=== PATIENT | male | born 1945 | race Caucasian/White ===

== ENCOUNTER 2018-07-05 17:36 | Observation (INO) ==
[2018-07-05] MEDS ORDERED: Sod Chloride 0.9% Inj 1,000 ML IV.SIG ONE (17:47)
--- NOTE | 2018-07-05 18:08 | XR ---
EXAM DATE: 07/05/2018 5:47 PM EDT AGE/SEX: 73 years / Male INDICATIONS: Short of breath CLINICAL DATA: This is the patient's initial encounter. Patient reports that signs and symptoms have been present for 1 day and indicates a pain score of 0/10. MEDICAL/SURGICAL HISTORY: Hypertension. Carotid stent. COMPARISON: No prior exams available for comparison. FINDINGS: A single AP view of the chest demonstrates the lungs to be symmetrically aerated without evidence of mass, infiltrate or effusion. The cardiomediastinal contours are unremarkable. Osseous structures a re intact. CONCLUSION: No acute cardiopulmonary disease. Electronically signed by: Delroy Henning MD 07/05/2018 6:07 PM EDT
--- NOTE | 2018-07-05 18:12 | ED ---
HPI General Chief Complaint: Syncope Stated Complaint: Syncope Time Seen by Provider: 07/05/18 17:37 Source: patient Mode of arrival: ambulatory Limitations: no limitations History of Present Illness HPI narrative: Patient is a 73-year-old male presenting to [facility] via EMS for evaluation after having a syncopal episode. Episode was witnessed by and bystanders, patient was sitting on a cooler when he just collapsed. He did not hit his head, he was helped to the ground. states that he has not been feeling well all day. Patient denies any nausea, vomiting, chest pain, dizziness, abdominal pain, diarrhea. Patient denies any visual changes, he states that he gets like this historically when his blood sugars low, patient is not diabetic. Patient stated he was not feeling well and somebody gave him a brownie to eat, blood glucose when EMS arrived was 140. Syncopal episode lasted approximately 30 seconds. Patient has a history of coronary artery disease, hypertension, hyperlipidemia. He is currently on Plavix and is followed by Dr. Porter, cardiology. MD complaint: collapsed Onset (ago): minute(s) Duration of episode: 30 -: second(s) Prodromal symptoms: lightheaded Witnessed: yes - by other Context: at rest Injuries sustained associated with event: none Current symptoms: lightheaded and weakness History: history of CAD Treatments prior to arrival: none Related Data Home Medications Medication Instructions Recorded Confirmed amlodipine [Norvasc] 5 mg PO DAILY 07/05/18 07/05/18 ascorbic acid (vitamin C) [Vitamin 1,000 mg PO TID 07/05/18 07/05/18 C] aspirin [Aspirin Childrens] 81 mg PO BID 07/05/18 07/05/18 atorvastatin [Lipitor] 80 mg PO DAILY 07/05/18 07/05/18 benazepril 40 mg PO BID 07/05/18 07/05/18 clopidogrel [Plavix] 75 mg PO DAILY 07/05/18 07/05/18 ferrous sulfate 325 mg PO TID 07/05/18 07/05/18 gabapentin 600 mg PO TID 07/05/18 07/05/18 levothyroxine 50 mcg PO DAILY 07/05/18 07/05/18 meloxicam [Mobic] 15 mg PO DAILY 07/05/18 07/05/18 mirtazapine 15 mg PO HS 07/05/18 07/05/18 tizanidine 2 - 4 mg PO TID PRN 07/05/18 07/05/18 Allergies Allergy/AdvReac Type Severity Reaction Status Date / Time No Known Allergies Allergy Verified 07/05/18 18:21 Review of Systems ROS: all other systems reviewed are negative PMFSH History History Provided By: Patient, Family Member and Supervisor Lime / EMT Medical History Medical History CVA (cerebral vascular accident) (Acute) Coronary artery disease (Acute) FH: cholecystectomy (Acute) Hyperlipidemia (Acute) Hypertension (Acute) Hypothyroidism (Acute) Muscle pain (Acute) Surgical History Surgical History History of coronary artery stent placement (Acute) Hx of cardiac cath (Acute) Hx of tonsillectomy (Acute) Social History Social History Substance History: No History of Abuse Second Hand Smoke Exposure: No Smoking Status: Former smoker How Often Do You Have a Drink Containing Alcohol: 2 to 4 times a month Recent Travel in [facility] within the Last 8 Weeks: No Recent Out of Country Travel within the Last 8 Weeks: No Exam Narrative Exam Narrative: GENERAL: Well-developed, well-nourished, alert male. Presenting in no acute distress. SKIN: Focused skin assessment warm/dry. HEAD: Atraumatic. Normocephalic. EYES: Pupils equal and round. No scleral icterus. No injection or drainage. ENT: No nasal bleeding or discharge. Mucous membranes pink and moist. NECK: Trachea midline. No JVD. CARDIOVASCULAR: Bradycardic. No murmur appreciated. RESPIRATORY: No accessory muscle use. Clear to auscultation. Breath sounds equal bilaterally. GASTROINTESTINAL: Abdomen soft, non-tender, nondistended. Hepatic and splenic margins not palpable. MUSCULOSKELETAL: No obvious deformities. No clubbing. No cyanosis. No edema. NEUROLOGICAL: Awake and alert. No obvious cranial nerve deficits. Motor grossly within normal limits. Normal speech. PSYCHIATRIC: Appropriate mood and affect; insight and judgment normal. Course Initial Documented Vital Signs Temperature 98.2 F 07/05/18 17:45 Pulse Rate 92 H 07/05/18 17:45 Respiratory Rate 18 07/05/18 17:45 Blood Pressure 134/61 07/05/18 17:45 Pulse Oximetry 99 07/05/18 17:45 Last Documented Vital Signs Temperature 98.2 F 07/05/18 17:45 Pulse Rate 56 L 07/05/18 18:39 Respiratory Rate 28 H 07/05/18 18:39 Blood Pressure 136/66 07/05/18 18:39 Pulse Oximetry 96 07/05/18 18:39 Medical Decision Making ALBA Attestation ALBA supervised visit: Yes Attestation: I was present with the advanced practitioner during the management of this patient. I discussed the case with the advanced practitioner and agree with the findings and plan as documented in their note except if noted below. MDM Narrative Medical decision making narrative: Patient is a 73-year-old male presenting after having a witnessed syncopal episode. Patient is mildly bradycardic on arrival, his vital signs are otherwise stable. Labs and imaging ordered and pending. Labs reviewed, no acute findings. EKG shows sinus bradycardia with a first- degree block. Ventricular rate is 55. CT scan of the brain shows no acute findings, chest x-ray is unremarkable. Patient has been resting comfortably, no new events in the emergency department. Discussed findings with my attending physician. Patient will be admitted under observation for syncopal episode. He is high risk according to [place] syncope rule. Patient and were advised on clinical findings and plan of care. Patient is agreeable. Dr. Aguilar accepted admit. Orders placed. Medical Screen Exam Complete: Yes Emergency Medical Condition: Yes Differential Diagnosis Differential Diagnosis: Heat syncope versus vasovagal episode versus arrhythmia versus metabolic abnormality versus other Lab Data Result diagrams: 07/05/18 17:55 07/05/18 17:55 Lab Results 07/05/18 07/05/18 07/05/18 Range/Units 17:55 17:55 17:55 WBC 5.4 (4.0-11.0) th/mm3 RBC 3.88 L (4.50-5.90) mil/mm3 Hgb 12.9 L (13.0-17.0) gm/dL Hct 36.2 L (39.0-51.0) % MCV 93.2 (80.0-100.0) fL MCH 33.2 (27.0-34.0) pg MCHC 35.6 (32.0-36.0) % RDW 13.0 (11.6-17.2) % Plt Count 174 (150-450) th/mm3 MPV 7.1 (7.0-11.0) fL Neut % (Auto) 74.9 H (16.0-70.0) % Lymph % (Auto) 13.0 (9.0-44.0) % Ralls % (Auto) 6.2 (0.0-8.0) % Eos % (Auto) 5.6 H (0.0-4.0) % Baso % (Auto) 0.3 (0.0-2.0) % Neut # (Auto) 4.0 (1.8-7.7) th/mm3 Lymph # (Auto) 0.7 L (1.0-4.8) th/mm3 Ralls # (Auto) 0.3 (0.0-0.9) th/mm3 Eos # (Auto) 0.3 (0.0-0.4) th/mm3 Baso # (Auto) 0.0 (0.0-0.2) th/mm3 WBC Differential . Differential Comment Auto diff final PT 10.4 (9.8-11.6) sec INR 1.0 Ratio APTT 22.5 L (24.3-30.1) sec Sodium 142 (136-145) meq/L Potassium 3.9 (3.5-5.1) meq/L Chloride 107 (98-107) meq/L Carbon Dioxide 26.9 (21.0-32.0) meq/L Anion Gap 8 (5-15) meq/L BUN 20 H (7-18) mg/dL Creatinine 1.19 (0.60-1.30) mg/dL Estimated GFR 60 L (>89) mL/min Random Glucose 123 H (74-106) mg/dL Calcium 8.0 L (8.5-10.1) mg/dL Magnesium 2.1 (1.5-2.5) mg/dL Total Bilirubin 0.4 (0.2-1.0) mg/dL AST 15 (15-37) U/L ALT 21 (12-78) U/L Alkaline Phosphatase 104 (45-117) U/L Total Creatine Kinase 58 (39-308) U/L Troponin I Less than 0.02 L (0.02-0.05) ng/mL Total Protein 7.0 (6.4-8.2) g/dL Albumin 4.0 (3.4-5.0) g/dL Imaging Data Radiologist's impression: Chest X-Ray 07/05/18 17:47 CONCLUSION: No acute cardiopulmonary disease. Head CT 07/05/18 17:47 CONCLUSION: 1. No acute hemorrhage or mass effect. 2. Atrophy and chronic small vessel ischemic changes 3. Extensive mucosal thickening in the left maxillary sinus. . ECG Data Attestation: I personally reviewed and interpreted this ECG as follows: Interpretation: Rate: 55 BPM Rhythm: Sinus [place]: Normal Intervals: 1st degree AV block, QTc 400 ms Q waves: None T waves: Upright, no inversions ST segments: 1 mm elevation in V2 without changes in contiguous leads, no depressions Impression: Abnormal EKG, 1st degree AV block, no previous EKGs available for comparison. Discharge Plan Discharge Disposition Patient Disposition: 30 Still Patient Discharge Condition Condition: Stable Discharge Details Diagnosis: Syncope and collapse, Abnormal EKG Physicians Team ED Provider: Honey Lopez ED Midlevel Provider: Magali Arthur Primary Care Provider: NON STAFF,PROVIDER Attending Provider: Bere Aguilar Discharge Interventions Interventions: Vital Signs Last Done: 07/05/18 18:39 Status ED Status: Admitted Observation Patient
[2018-07-05 18:17] LABS: Baso % (Auto) 0.3 % (0.0-2.0); Eos # (Auto) 0.3 th/mm3 (0.0-0.4); Eos % (Auto) 5.6 % (0.0-4.0); Hematocrit 36.2 % (39.0-51.0); Hemoglobin 12.9 gm/dL (13.0-17.0); Lymph # (Auto) 0.7 th/mm3 (1.0-4.8); Mean Corpuscular HGB Conc 35.6 % (32.0-36.0); Mean Corpuscular Hemoglobin 33.2 pg (27.0-34.0); Mean Corpuscular Volume 93.2 fL (80.0-100.0); Mean Platelet Volume 7.1 fL (7.0-11.0); Mono # (Auto) 0.3 th/mm3 (0.0-0.9); Mono % (Auto) 6.2 % (0.0-8.0); Neut % (Auto) 74.9 % (16.0-70.0); Platelet Count 174 th/mm3 (150-450); Red Blood Count 3.88 mil/mm3 (4.50-5.90); White Blood Count 5.4 th/mm3 (4.0-11.0)
[2018-07-05 18:19] LABS: Activated Partial Thrombo Time 22.5 sec (24.3-30.1); Prothrombin Time 10.4 sec (9.8-11.6)
[2018-07-05 18:30] LABS: Alanine Aminotransferase 21 U/L (12-78); Anion Gap 8 meq/L (5-15); Aspartate Aminotransferase 15 U/L (15-37); Blood Urea Nitrogen 20 mg/dL (7-18); Carbon Dioxide 26.9 meq/L (21.0-32.0); Chloride 107 meq/L (98-107); Glomerular Filtration Rate 60 mL/min (>89); Glucose,Random 123 mg/dL (74-106); Magnesium 2.1 mg/dL (1.5-2.5); Potassium 3.9 meq/L (3.5-5.1); Sodium 142 meq/L (136-145)
[2018-07-05 18:32] LABS: Alkaline Phosphatase 104 U/L (45-117)
[2018-07-05 18:33] LABS: Creatine Kinase 58 U/L (39-308)
--- NOTE | 2018-07-05 19:27 | CT ---
EXAM DATE: 07/05/2018 5:53 PM EDT AGE/SEX: 73 years / Male INDICATIONS: Syncopal episode. CLINICAL DATA: This is the patient's initial encounter. Patient reports that signs and symptoms have been present for 1 day and indicates a pain score of 0/10. MEDICAL/SURGICAL HISTORY: None. None. RADIATION DOSE: 36.84 CTDI (mGy) COMPARISON: No prior exams available for comparison. TECHNIQUE: CT of the head without contrast. Using automated exposure control and adjustment of the mA and/or kV according to patient size, radiation dose was kept as low as reasonably achievable to ob tain optimal diagnostic quality images. DICOM format image data is available electronically for revi ew and comparison. FINDINGS: Cerebrum: The ventricles are normal for age. Patchy periventricular white matter lucencies are pres ent consistent with chronic small vessel ischemic change. No evidence of midline shift, mass lesion, hemorrhage or acute infarction. No extraaxial fluid collections are seen. Posterior Fossa: The cerebellum and brainstem are intact. The 4th ventricle is midline. The cerebe llopontine angle is unremarkable. Extracranial: The visualized portion of the orbits is intact. There is extensive mucosal thickening in the left maxillary sinus. Skull: The calvaria is intact. No evidence of skull fracture. CONCLUSION: 1. No acute hemorrhage or mass effect. 2. Atrophy and chronic small vessel ischemic changes 3. Extensive mucosal thickening in the left maxillary sinus. . Electronically signed by: Delroy Henning MD 07/05/2018 7:26 PM EDT
[2018-07-05] MEDS ORDERED: Acetaminophen 325 MG Tablet PO PRN (20:42)
[2018-07-05] MEDS ORDERED: Bisacodyl 10 MG Supp RECTAL PRN (20:42)
--- NOTE | 2018-07-05 21:54 | P.HPIM ---
History of Present Illness Primary Care Physician: PROVIDER NON STAFF History of Present Illness: This is a 73-year-old male with a PMH of HTN, Hyperlipidemia, CAD and h/o CVA who was brought to the ER by EMS after syncopal event. Pt states had been outdoors for almost 2hrs and sat down on a cooler when he had sudden onset of lightheadedness followed by syncope. Event witnessed by and bystanders who lowered pt to the ground, no head trauma reported. Notes previous episode of syncope in the past while hypoglycemic, BS 140 per EMS. Currently awake and alert w/ no complaints. On arrival, BP 134/61, HR 92, O2 sat 99% on RA, Afebrile. While in the ER however patient has had bradycardia with HR sustained in the 50s, denies previous history of bradycardia in the past. EKG with first-degree block. Does follow w/ Deposit Clerk, Dr. Porter, at , scheduled for Echo/Stress tomorrow morning. CBC unremarkable. INR 1.0. Chemistry essentially unremarkable except for GFR 60. BUN 20. Troponin negative. - Diagnosis (1) Syncope (2) Bradycardia (3) Abnormal EKG (4) Dehydration Review of Systems PAST FAMILY HISTORY: Reviewed. No h/o DM or CAD All other systems reviewed negative except as [facility] - History History Provided By: Patient, Family Member, Admitting Clerk / EMT - Medical History Medical History: Medical History (Last Updated 07/05/18 @ 18:38 by JuanitaNeedle HR) CVA (cerebral vascular accident) Coronary artery disease FH: cholecystectomy Hyperlipidemia Hypertension Hypothyroidism Muscle pain - Surgical History Surgical History: Surgical History (Last Updated 07/05/18 @ 18:38 by JuanitaNeedle HR) History of coronary artery stent placement Hx of cardiac cath Hx of tonsillectomy - Tobacco History Second Hand Smoke Exposure: No Tobacco Use In Past 30 Days: No Smoking Status: Former smoker - Alcohol History How Often Do You Have a Drink Containing Alcohol: 2 to 4 times a month - Substance Use History Substance History: No History of Abuse - Travel History Recent Travel in the [facility] Within the Last 8 Weeks: No Recent Travel Out of the Country Within the Last 8 Weeks: No - Immunization History Tetanus Immunization: >5 Years Hx Influenza Vaccine This Season: No Medications and Allergies Active Medications: Active Medications Acetaminophen (Tylenol) 650 mg PO Q4H PRN PRN Reason: Temp > 100.4 Al Hydroxide/Mg Hydroxide (Milk Of Magnesia Liq) 30 ml PO Q12H PRN PRN Reason: Mild Constipation Aspirin (Aspirin Chew) 81 mg PO BID [facility] Atorvastatin Calcium (Lipitor) 80 mg PO DAILY [facility] Bisacodyl (Dulcolax Supp) 10 mg RECTAL DAILY PRN PRN Reason: SEVERE CONSITIPATION Clopidogrel Bisulfate (Plavix) 75 mg PO DAILY [facility] Sodium Chloride (Ns Inj) 1,000 mls @ 100 mls/hr IV.CONT .Q10H ALLYN Lactulose (Lactulose Liq) 30 ml PO DAILY PRN PRN Reason: SEVERE CONSITIPATION Mirtazapine (Remeron) 15 mg PO HS [facility] Ondansetron HCl (Zofran Inj) 4 mg IV.PUSH Q6H PRN PRN Reason: NAUSEA OR VOMITING Senna/Docusate Sodium (Char-Colace) 1 tab PO BID [facility] Sennosides (Senokot) 17.2 mg PO Q12H PRN PRN Reason: Moderate Constipation Allergies Allergy/AdvReac Type Severity Reaction Status Date / Time No Known Allergies Allergy Verified 07/05/18 18:21 Home Medications Medication Instructions Recorded Confirmed Type amlodipine [Norvasc] 5 mg PO DAILY 07/05/18 07/05/18 History ascorbic acid (vitamin C) [Vitamin 1,000 mg PO TID 07/05/18 07/05/18 History C] aspirin [Aspirin Childrens] 81 mg PO BID 07/05/18 07/05/18 History atorvastatin [Lipitor] 80 mg PO DAILY 07/05/18 07/05/18 History benazepril 40 mg PO BID 07/05/18 07/05/18 History clopidogrel [Plavix] 75 mg PO DAILY 07/05/18 07/05/18 History ferrous sulfate 325 mg PO TID 07/05/18 07/05/18 History gabapentin 600 mg PO TID 07/05/18 07/05/18 History levothyroxine 50 mcg PO DAILY 07/05/18 07/05/18 History meloxicam [Mobic] 15 mg PO DAILY 07/05/18 07/05/18 History mirtazapine 15 mg PO HS 07/05/18 07/05/18 History tizanidine 2 - 4 mg PO TID PRN 07/05/18 07/05/18 History Exam Vital signs: Vital Signs 07/05/18 17:45 07/05/18 17:48 07/05/18 18:39 Temperature 98.2 F Pulse Rate 92 H 56 L Respiratory Rate 18 28 H Blood Pressure 134/61 136/66 Pulse Oximetry 99 99 96 Intake & Output 07/05/18 07/05/18 07/06/18 06:59 18:59 06:59 Intake Total 1000 / 1000 Balance 1000 / 1000 Weight 97.976 kg Intake: IV 1000 / 1000 NS Inj 1,000 ML @ Wide Open IV. 1000 / 1000 SIG BOLUS ONE Rx#:[id number] Narrative: PE: GENERAL: Extremely pleasant middle-aged white male in no acute distress. at bedside. SKIN: Focused skin assessment warm and dry. HEENT: PERRLA, EOMI. No scleral icterus or conjunctival pallor. No lid lag or facial droop. CARDIOVASCULAR: Bradycardia. No obvious murmurs to auscultation. No chest tenderness to palpation. RESPIRATORY: No obvious rhonchi or wheezing. Clear to auscultation. Breath sounds equal bilaterally. GASTROINTESTINAL: Abdomen soft, non-tender, nondistended. BS normal. MUSCULOSKELETAL: Extremities without clubbing, cyanosis, or edema. No obvious deformities. NEUROLOGICAL: Awake, alert and oriented x4. No focal neurologic deficits. Moving both upper and lower extremities spontaneously. PSYCHIATRIC: Appropriate mood and affect. Insight and judgment normal. Results - Labs CBC & Chem 7: 07/05/18 17:55 07/05/18 17:55 Labs: Short CBC 07/05/18 Range/Units 17:55 WBC 5.4 (4.0-11.0) th/mm3 Hgb 12.9 L (13.0-17.0) gm/dL Hct 36.2 L (39.0-51.0) % Plt Count 174 (150-450) th/mm3 BMP 07/05/18 17:55 Sodium 142 Potassium 3.9 Chloride 107 Carbon Dioxide 26.9 BUN 20 H Creatinine 1.19 Calcium 8.0 L Cardiac Enzymes 07/05/18 Range/Units 17:55 Total Creatine Kinase 58 (39-308) U/L Troponin I Less than 0.02 L (0.02-0.05) ng/mL Liver Function 07/05/18 Range/Units 17:55 Total Bilirubin 0.4 (0.2-1.0) mg/dL AST 15 (15-37) U/L ALT 21 (12-78) U/L Alkaline Phosphatase 104 (45-117) U/L Albumin 4.0 (3.4-5.0) g/dL - Imaging Impressions Chest X-Ray 07/05/18 17:47 CONCLUSION: No acute cardiopulmonary disease. Head CT 07/05/18 17:47 CONCLUSION: 1. No acute hemorrhage or mass effect. 2. Atrophy and chronic small vessel ischemic changes 3. Extensive mucosal thickening in the left maxillary sinus. . Caprini VTE Risk Assessment Caprini VTE Risk Assessment: No/Low Risk (score <= 1) Caprini Risk Assessment Model: Point Value = 1 Point Value = 2 Point Value = 3 Point Value = 5 Age 41-60 Minor surgery BMI > 25 kg/m2 Swollen legs Varicose veins or History of unexplained or recurrent spontaneous Oral contraceptives or hormone replacement Sepsis (< 1 month) Serious lung disease, including pneumonia (< 1 month) Abnormal pulmonary function Acute myocardial infarction Congestive heart failure (< 1 month) History of inflammatory bowel disease Medical patient at bed rest Age 61-74 Arthroscopic surgery Major open surgery (> 45 min) Laparoscopic surgery (> 45 min) Malignancy Confined to bed (> 72 hours) Immobilizing plaster cast Central venous access Age >= 75 History of VTE Family history of VTE Factor V Leiden Prothrombin [id number] Lupus anticoagulant Anticardiolipin antibodies Elevated serum homocysteine Heparin-induced thrombocytopenia Other congenital or acquired thrombophilia Stroke (< 1 month) Elective arthroplasty Hip, pelvis, or leg fracture Acute spinal cord injury (< 1 month) Prophylaxis Regimen: Total Risk Factor Score Risk Level Prophylaxis Regimen 0-1 Low Early ambulation 2 Moderate Order ONE of the following: *Sequential Compression Device (SCD) *Heparin 5000 units SQ BID 3-4 Higher Order ONE of the following medications: *Heparin 5000 units SQ TID *Enoxaparin/Lovenox 40 mg SQ daily (WT < 150 kg, CrCl > 30 mL/min) *Enoxaparin/Lovenox 30 mg SQ daily (WT < 150 kg, CrCl > 10-29 mL/min) *Enoxaparin/Lovenox 30 mg SQ BID (WT < 150 kg, CrCl > 30 mL/min) AND/OR *Sequential Compression Device (SCD) 5 or more Highest Order ONE of the following medications: *Heparin 5000 units SQ TID (Preferred with Epidurals) *Enoxaparin/Lovenox 40 mg SQ daily (WT < 150 kg, CrCl > 30 mL/min) *Enoxaparin/Lovenox 30 mg SQ daily (WT < 150 kg, CrCl > 10-29 mL/min) *Enoxaparin/Lovenox 30 mg SQ BID (WT < 150 kg, CrCl > 30 mL/min) AND *Sequential Compression Device (SCD) Assessment and Plan - Assessment (1) Syncope Code(s): R55 - Syncope and collapse Status: Acute (2) Bradycardia Code(s): R00.1 - Bradycardia, unspecified Status: Acute (3) Abnormal EKG Code(s): R94.31 - Abnormal electrocardiogram [ECG] [EKG] Status: Acute (4) Dehydration Code(s): E86.0 - Dehydration Status: Acute - Plan A/P: 1. Syncope: +lightheadedness followed by syncopal event, possibly due to dehydration vs bradycardia/arrhythmia. CT Head w/ no acute findings, images reviewed. Initial trop negative, admit for observation, Telemetry, check serial cardiac enzymes to r/o underlying ischemia. IVF for hydration. 2. Bradycardia: Symptomatic. HR sustained 50's while in ER, not on B-jessica therapy, will monitor on Telemetry, check Echo to eval for valvular abnormality/ cardiomyopathy. Consult Cardiology if needed, does have outpatient appt w/ Deposit Clerk tomorrow for routine Stress/Echo. 3. Abnormal EKG: EKG w/ first degree block, no previous EKG for comparison, not on B-jessica, repeat EKG. 4. Dehydration: BUN 20, GFR 60, IVF for hydration, repeat labs in am, monitor I/O 5. DVT Prophylaxis: SCD/Teds 6. Social work for d/c planning as needed. 7. Case discussed w/ ER physician at length, labs/records/imaging reviewed by me
[2018-07-05] MEDS: Sod Chloride 0.9% Inj 1,000 ML IV.CONT SCH (22:00)
[2018-07-05] MEDS: Senna/Docusate Sodium 8.6/50 MG Tablet PO SCH ×2 (22:00→22:26)
[2018-07-05] MEDS: Mirtazapine 15 MG Tablet PO SCH ×2 (22:00→22:25)
[2018-07-06 00:54] LABS: Bilirubin,Urine Negative (Negative); Clarity,Urine Clear (Clear); Color,Urine Yellow (Yellw/Straw); Glucose,Urine (UA) Negative (Negative); Hyaline Casts,Urine 1 /lpf (0-3); Leukocyte Esterase,Urine Negative (Negative); Mucus,Urine Few /lpf (Occasional); Nitrite,Urine Negative (Negative); Specific Gravity,Urine 1.011 (1.002-1.035)
[2018-07-06 06:00] LABS: Baso % (Auto) 0.8 % (0.0-2.0); Eos # (Auto) 0.4 th/mm3 (0.0-0.4); Eos % (Auto) 7.6 % (0.0-4.0); Hematocrit 32.9 % (39.0-51.0); Hemoglobin 11.6 gm/dL (13.0-17.0); Lymph # (Auto) 1.1 th/mm3 (1.0-4.8); Mean Corpuscular HGB Conc 35.4 % (32.0-36.0); Mean Corpuscular Hemoglobin 33.3 pg (27.0-34.0); Mean Platelet Volume 7.1 fL (7.0-11.0); Mono # (Auto) 0.3 th/mm3 (0.0-0.9); Neut # (Auto) 2.8 th/mm3 (1.8-7.7); Neut % (Auto) 60.6 % (16.0-70.0); Platelet Count 151 th/mm3 (150-450); Red Cell Distribution Width 13.2 % (11.6-17.2); White Blood Count 4.6 th/mm3 (4.0-11.0)
[2018-07-06 06:32] LABS: Alanine Aminotransferase 17 U/L (12-78); Albumin 3.3 g/dL (3.4-5.0); Anion Gap 7 meq/L (5-15); Aspartate Aminotransferase 13 U/L (15-37); Blood Urea Nitrogen 15 mg/dL (7-18); Calcium 7.8 mg/dL (8.5-10.1); Carbon Dioxide 30.1 meq/L (21.0-32.0); Chloride 110 meq/L (98-107); Glomerular Filtration Rate 69 mL/min (>89); Glucose,Random 84 mg/dL (74-106); Potassium 3.8 meq/L (3.5-5.1); Sodium 147 meq/L (136-145)
[2018-07-06 06:39] LABS: Alkaline Phosphatase 86 U/L (45-117)
[2018-07-06] MEDS: Sod Chloride 0.9% Inj 1,000 ML IV.CONT SCH (07:22)
[2018-07-06 07:56] VITALS: BP 128/67; PULSE 49; RESP 16; TEMP 97.7; O2SAT 98
--- NOTE | 2018-07-06 08:26 | P.PN ---
Subjective Interval history: Follow-up for syncopal episode. Patient is currently doing well. He is ambulating well. Denies any chest pain, shortness of breath, fever or chills. He denies any dizziness on standing. Physical Exam Vital signs: Vital Signs 07/05/18 17:45 07/05/18 17:48 07/05/18 18:39 Temperature 98.2 F Pulse Rate 92 H 56 L Respiratory Rate 18 28 H Blood Pressure 134/61 136/66 Pulse Oximetry 99 99 96 07/05/18 21:53 07/05/18 23:24 07/06/18 01:05 Temperature 97.5 F L 97.5 F L Pulse Rate 55 L 56 L 50 L Respiratory Rate 18 19 Blood Pressure 150/74 H 139/74 Pulse Oximetry 99 96 07/06/18 04:00 07/06/18 07:54 Temperature 98.0 F 97.7 F Pulse Rate 50 L 49 L Respiratory Rate 18 16 Blood Pressure 121/66 128/67 Pulse Oximetry 97 98 Intake & Output 07/05/18 07/06/18 07/06/18 18:59 06:59 18:59 Intake Total 1240 / 1240 1000 / 1000 Balance 1240 / 1240 1000 / 1000 Weight 97.976 kg 97.522 kg Intake: IV 1000 / 1000 1000 / 1000 NS Inj 1,000 ML @ 100 mls/hr IV 1000 / 1000 .CONT .Q10H ALLYN Rx#:[id number] NS Inj 1,000 ML @ Wide Open IV. 1000 / 1000 SIG BOLUS ONE Rx#:[id number] Oral 240 / 240 Other: # Voids 1 Date of Last Bowel Movement 07/04/18 Weight On Admission 97.522 kg Narrative: GENERAL: Alert, oriented x3, NAD. SKIN: Warm and dry. HEAD: Normocephalic. EYES: No scleral icterus. No injection or drainage. NECK: Supple, trachea midline. No JVD or lymphadenopathy. CARDIOVASCULAR: Regular rate and rhythm without murmurs, gallops, or rubs. RESPIRATORY: Breath sounds equal bilaterally. No accessory muscle use. GASTROINTESTINAL: Abdomen soft, non-tender, nondistended. MUSCULOSKELETAL: No cyanosis, or edema. BACK: Nontender without obvious deformity. No CVA tenderness. Results - Labs CBC & Chem 7: 07/06/18 05:21 07/06/18 05:21 Laboratory Results - last 24 hr 07/05/18 07/05/18 07/05/18 17:55 17:55 17:55 WBC 5.4 RBC 3.88 L Hgb 12.9 L Hct 36.2 L MCV 93.2 MCH 33.2 MCHC 35.6 RDW 13.0 Plt Count 174 MPV 7.1 Neut % (Auto) 74.9 H Lymph % (Auto) 13.0 [place] % (Auto) 6.2 Eos % (Auto) 5.6 H Baso % (Auto) 0.3 Neut # (Auto) 4.0 Lymph # (Auto) 0.7 L [place] # (Auto) 0.3 Eos # (Auto) 0.3 Baso # (Auto) 0.0 WBC Differential . Differential Comment Auto diff final PT 10.4 INR 1.0 APTT 22.5 L Sodium 142 Potassium 3.9 Chloride 107 Carbon Dioxide 26.9 Anion Gap 8 BUN 20 H Creatinine 1.19 Estimated GFR 60 L Random Glucose 123 H Calcium 8.0 L Magnesium 2.1 Total Bilirubin 0.4 AST 15 ALT 21 Alkaline Phosphatase 104 Total Creatine Kinase 58 Troponin I Less than 0.02 L Total Protein 7.0 Albumin 4.0 TSH Urine Color Urine Clarity Urine pH Ur Specific [place] Urine Protein Urine Glucose (UA) Urine Ketones Urine Occult Blood Urine Nitrate Urine Bilirubin Urine Urobilinogen Ur Leukocyte Esterase Urine RBC Urine WBC Hyaline Casts Urine Mucus Micro UA Comment Ur Microscopic Review Urine Culture Comments 07/06/18 07/06/18 07/06/18 00:31 01:13 05:21 WBC 4.6 RBC 3.50 L Hgb 11.6 L Hct 32.9 L MCV 94.0 MCH 33.3 MCHC 35.4 RDW 13.2 Plt Count 151 MPV 7.1 Neut % (Auto) 60.6 Lymph % (Auto) 24.0 [place] % (Auto) 7.0 Eos % (Auto) 7.6 H Baso % (Auto) 0.8 Neut # (Auto) 2.8 Lymph # (Auto) 1.1 [place] # (Auto) 0.3 Eos # (Auto) 0.4 Baso # (Auto) 0.0 WBC Differential . Differential Comment Auto diff final PT INR APTT Sodium Potassium Chloride Carbon Dioxide Anion Gap BUN Creatinine Estimated GFR Random Glucose Calcium Magnesium Total Bilirubin AST ALT Alkaline Phosphatase Total Creatine Kinase Troponin I Less than 0.02 L Total Protein Albumin TSH Urine Color Yellow Urine Clarity Clear Urine pH 5.0 Ur Specific [place] 1.011 Urine Protein Negative Urine Glucose (UA) Negative Urine Ketones Negative Urine Occult Blood Negative Urine Nitrate Negative Urine Bilirubin Negative Urine Urobilinogen Less than 2 Ur Leukocyte Esterase Negative Urine RBC 1 Urine WBC Less than 1 Hyaline Casts 1 Urine Mucus Few H Micro UA Comment Culture not ind Ur Microscopic Review Not Reportable Urine Culture Comments Culture not ind 07/06/18 07/06/18 05:21 05:21 WBC RBC Hgb Hct MCV MCH MCHC RDW Plt Count MPV Neut % (Auto) Lymph % (Auto) [place] % (Auto) Eos % (Auto) Baso % (Auto) Neut # (Auto) Lymph # (Auto) [place] # (Auto) Eos # (Auto) Baso # (Auto) WBC Differential Differential Comment PT INR APTT Sodium 147 H Potassium 3.8 Chloride 110 H Carbon Dioxide 30.1 Anion Gap 7 BUN 15 Creatinine 1.05 Estimated GFR 69 L Random Glucose 84 Calcium 7.8 L Magnesium Total Bilirubin 0.4 AST 13 L ALT 17 Alkaline Phosphatase 86 Total Creatine Kinase Troponin I Less than 0.02 L Total Protein 6.0 L D Albumin 3.3 L D TSH 1.910 Urine Color Urine Clarity Urine pH Ur Specific [place] Urine Protein Urine Glucose (UA) Urine Ketones Urine Occult Blood Urine Nitrate Urine Bilirubin Urine Urobilinogen Ur Leukocyte Esterase Urine RBC Urine WBC Hyaline Casts Urine Mucus Micro UA Comment Ur Microscopic Review Urine Culture Comments - Imaging Impressions Chest X-Ray 07/05/18 17:47 CONCLUSION: No acute cardiopulmonary disease. Head CT 07/05/18 17:47 CONCLUSION: 1. No acute hemorrhage or mass effect. 2. Atrophy and chronic small vessel ischemic changes 3. Extensive mucosal thickening in the left maxillary sinus. . - Procedures None. Assessment and Plan - Assessment (1) Syncope Code(s): R55 - Status: Acute (2) Bradycardia Code(s): R00.1 - Status: Acute (3) Abnormal EKG Code(s): R94.31 - Status: Acute (4) Dehydration Code(s): E86.0 - Status: Acute - Plan This is a 73-year-old male with a PMH of HTN, Hyperlipidemia, CAD and h/o CVA who was brought to the ER by EMS after syncopal event. Patient reports that per EMS his BP was very low. Syncope -Possible due to to low blood pressure. -We will discontinue ADRYAN inhibitor and amlodipine for now. Patient is normotensive. -If needed blood pressure medications can be reintroduced gradually. -Patient has an appointment with his ict analyst Dr. Porter along with echocardiogram today. -We will discharge patient home so that he can make it to his ict analyst appointment. CAD Hypertension Hypothyroidism Hyperlipidemia -Continue home medications including levothyroxine, gabapentin, atorvastatin , aspirin and Plavix. Full code. Ambulation. Discharge patient to home Condition on discharge: Improved Heart healthy diet as tolerated Ad Emeli activity Rx written: No new medications. We discontinued benazepril and amlodipine. Follow-up with primary care physician PRN and [employer] appointment today at 11PM.
[2018-07-06] MEDS: Senna/Docusate Sodium 8.6/50 MG Tablet PO SCH (08:35)
--- NOTE | 2018-07-06 14:56 | ECG ---
Date Performed: 07/05/2018 Time Performed: 17:51:38 PTAGE: 73 years EKG: SINUS BRADYCARDIA WITH FIRST DEGREE AV BLOCK MARKED LEFT AXIS DEVIATION SEPTAL MYOCARDIAL I NFARCTION ABNORMAL ECG NO PREVIOUS TRACING DOCTOR: [place] Resendez Interpretating Date/Time 07/06/2018 14:55:00
== END 2018-07-06 09:51 | disposition home or self-care (01) ==
LOC: NEPC 17:36 → NEDA 17:36 → NEPGCP 21:50
PROVIDERS: ADMIT Hospitalist; ATTEND Hospitalist